=== PATIENT | male | born 1990 | race Caucasian/White ===

== ENCOUNTER 2019-12-28 18:34 | Emergency (ER) | payer OTHER, SELFPAY ==
[2019-12-28 18:52] VITALS: BP 126/92; PULSE 82; RESP 16; TEMP 36.8; O2SAT 99
--- NOTE | 2019-12-28 18:58 | ED.NAVMDI ---
HPI - Nausea/Vomiting/Diarrhea General Chief complaint: Dental/Oral Stated complaint: tooth ache,vomiting Time Seen by Provider: 12/28/19 18:38 Source: patient Mode of arrival: ambulatory Limitations: no limitations History of Present Illness HPI Narrative: 29-year-old man comes in today complaining of vomiting and diarrhea and a toothache. Patient states that he began having diarrhea yesterday and about noon today he had an explosion of pus in his mouth and a toothache. Since then he has been vomiting. He denies lightheadedness except when he is vomiting and has had no fever, difficulty swallowing, difficulty breathing, facial and neck swelling, or abdominal pain. The pain is in his right lower jaw. MD elicited complaint: nausea, vomiting and diarrhea Onset (ago): day(s) (1) Description of vomiting: food contents Description of diarrhea: watery Associated nausea: Yes Associated abdominal pain: No Location of pain: none Exacerbating factors: eating ( He tried to take ibuprofen after the tooth pain began and was unable to keep it down) Relieving factors: none Context: marijuana use Associated symptoms: nausea/vomiting Related Data Home Medications Medication Instructions Recorded Confirmed fluoxetine 20 mg PO DAILY 12/28/19 12/28/19 trazodone 50 mg PO HS PRN 12/28/19 12/28/19 Allergies Allergy/AdvReac Type Severity Reaction Status Date / Time No Known Allergies Allergy Verified 12/28/19 18:49 Review of Systems Constitutional: Constitutional: Denies chills, Denies fatigue, Denies fever(s) and Denies weakness Eyes: Eyes: Denies change in vision and Denies photophobia ENT: Denies dysphagia, Denies nasal congestion and Reports sore throat Cardiovascular: Cardiovascular: Denies chest pain and Denies radiating jaw, neck or arm pain Respiratory: Respiratory: Denies cough, Denies dyspnea and Denies wheezing Gastrointestinal: Gastrointestinal: Denies abdominal pain, Reports diarrhea, Reports nausea and Reports vomiting Neurologic: Denies vertigo, Denies dizziness, Denies syncope, Denies focal weakness and Denies numbness Psychiatric: Psychiatric: Denies anxiety and Denies depression Hematologic/Lymphatic: Hematologic/Lymphatic: Denies easy bleeding and Denies easy bruising Allergic/Immunologic: Allergic/Immunologic: Reports lip swelling and Reports wheezing PMFSH Past Medical History Medical History (Updated 12/28/19 @ 19:33 by Saul Blanca MD) Depression Social History Social History Smoking status: Never smoker Alcohol intake: never Substance use: current Substance use type: marijuana Other substance usage details: Denies narcotic abuse Living arrangements: with family Exam Const: General: alert Orientation/consciousness: patient oriented x3 Other: moderate acute distress, diaphoretic. Tremulous. HENMT: Head: normal to inspection Ears: external ears normal, TM's normal bilaterally and EAC's normal Mouth: Yes moist mucous membranes Other: diffuse severe tooth decay. Erythema with very mild gum swelling in the left lower jaw. No drainage evident. No jaw swelling Eyes: Cornea: corneas normal Pupils: Equal, round and reactive pupils present EOM: EOMs intact bilaterally Neck: Neck: normal visual inspection and no meningeal signs Resp: Effort & Inspection: normal respiratory effort and not labored Auscultation: clear to auscultation bilaterally, no rales, no rhonchi and no wheezes Cardio: Rate: regular rate Rhythm: regular rhythm Heart sounds: no murmurs GI: Inspection: non-distended GI Palp: Yes Soft to palpation, No Tenderness to palpation present (GI), No Guarding due to palpation present (GI) and No Rigid due to palpation Skin: General skin exam: normal color, no jaundice and no pallor Rashes: no rashes Neuro: General: patient oriented x3, moves all extremities, no focal motor deficits and CN's II-XI
[2019-12-28] MEDS: CLINDAMYCIN 600 MG/D5W 50 ML 600 MG/50 ML PIGGYBACK 100 MG IVPB (19:03)
[2019-12-28] MEDS: ONDANSETRON INJ 4 MG/2 ML VIAL IV PUSH (19:04)
[2019-12-28] MEDS: SODIUM CHLORIDE 0.9% IV 1,000 ML 999 ML IV CONT (19:04)
[2019-12-28 19:10] LABS: Basophils Absolute Auto 0.04 K/mm3 (0.00-0.10); Basophils Percent Auto 0.2 % (0.0-1.0); Eosinophils Absolute Auto 0.04 K/mm3 (0.02-0.50); Eosinophils Percent Auto 0.2 % (1.0-6.0); Hematocrit 48.2 % (40.0-54.0); Hemoglobin 16.1 g/dL (14.0-18.0); Immature Granulocyte Absolute 0.06 K/mm3 (0.00-0.00); Immature Granulocyte Percent A 0.3 % (0.0-0.0); Lymphocytes Absolute Auto 1.39 K/mm3 (1.10-4.50); Lymphocytes Percent Auto 7.8 % (18.0-42.0); Mean Corpuscular HGB Conc 33.4 g/dL (32.0-36.0); Mean Corpuscular Hemoglobin 29.3 pg (27.0-31.0); Mean Corpuscular Volume 87.6 fL (78.0-102.0); Mean Platelet Volume 11.2 fl (8.7-11.0); Monocytes Absolute Auto 0.92 K/mm3 (0.10-0.90); Monocytes Percent Auto 5.1 % (2.0-11.0); Neutrophils Absolute Auto 15.4 K/mm3 (1.7-7.2); Neutrophils Percent Auto 86.4 % (50.0-70.0); Platelet Count Result 205 K/mm3 (150-420); Red Cell Distribution Width 13.7 % (11.6-14.4); White Blood Count 17.9 K/mm3 (4.8-10.8)
[2019-12-28 19:25] LABS: Alanine Aminotransferase 18 U/L (16-63); Albumin Level 4.3 g/dL (3.4-5.0); Alkaline Phosphatase 78 U/L (46-116); Anion Gap 14.2 mmol/L (7-16); Aspartate Amino Transferase 14 U/L (15-37); Bilirubin,Total 0.5 mg/dL (0.00-1.00); Blood Urea Nitrogen 10 mg/dL (7-18); Calcium 9.9 mg/dL (8.5-10.1); Carbon Dioxide 28 mmol/L (21-32); Chloride 102 mmol/L (98-108); Estimated Glomerular Filt Rate > 60; Glucose 110 mg/dL (70-99); Osmolality Calculated 290 mOsm/kg (285-295); Potassium 4.2 mmol/L (3.5-5.1); Sodium 140 mmol/L (136-145); Total Protein 7.9 g/dL (6.4-8.2)
[2019-12-28] MEDS: KETOROLAC 30 MG/ML VIAL (*BKC) IV PUSH (19:36)
[2019-12-28 19:44] VITALS: PULSE 81; RESP 14; O2SAT 99
== END 2019-12-28 19:45 | disposition home or self-care (01) ==
PROVIDERS: Emergency Provider Emergency Medicine
DX: K52.9 Noninfective gastroenteritis and colitis, unspecified (principal); K04.7 Periapical abscess without sinus
CPT/HCPCS: 36415; 80053; 85025; 96365; 96375; 99283; 99284; J1885; J2405; J7030

== ENCOUNTER 2023-02-13 13:05 | Outpatient (CLI) | payer OTHER, SELFPAY ==
--- NOTE | ~2023-02-13 | CT_ITS ---
EXAMINATION: CT abdomen pelvis wo con DATE: 02/13/2023 13:28 INDICATION: Left flank pain. TECHNIQUE: Computed tomography (CT) of the abdomen and pelvis was performed without intravenous contr ast. Automated exposure control and iterative reconstruction technique were employed. The dose-length product was 190.95 mGy-cm. COMPARISON: None FINDINGS: Lung bases are clear. Heart size is normal. No pericardial or pleural effusion. Liver, spleen, pancre as, bilateral adrenal glands are normal. Bilateral nephrolithiasis with at least 10 stones in the lef t kidney measuring up to 2 mm and at least 7 stones in the right kidney measuring up to [address] one at the left ureterovesicular junction. No hydronephrosis. Bowels are unremarkable. Calcified appe ndicolith within the otherwise normal appendix with no periappendiceal inflammatory stranding to sugg est acute appendicitis. No free intraperitoneal gas or fluid. No pathologically enlarged abdominal or pelvic lymphadenopathy. Chronic appearing mild anterior wedging at T10 and T11 with mild lower thora cic spondylosis. IMPRESSION: 1. Bilateral nephrolithiasis with 1 mm stone at the left ureterovesicular junction. Reviewed, dictated and finalized at location A. IMPRESSION: 1. Bilateral nephrolithiasis with 1 mm stone at the left ureterovesicular junct ion.
== END 2023-02-13 13:06 | disposition home or self-care (01) ==
LOC: CHSIMG 13:11
PROVIDERS: PCP Nurse Practitioner; Visit Provider Family Medicine
DX: R10.32 Left lower quadrant pain (principal); N20.2 Calculus of kidney with calculus of ureter
CPT/HCPCS: 74176